=== PATIENT | female | born 1995 | race African-American/Black ===

== ENCOUNTER 2021-04-26 12:37 | Emergency (ER) | payer BC, SELFPAY ==
[2021-04-26 15:05] LABS: SARS-CoV-2 NAA Rapid Test Not Detected (NotDetected)
== END 2021-04-26 14:00 | disposition home or self-care (01) ==
LOC: CSHERS 12:37
DX: R50.9 Fever, unspecified (principal); R51.9 Headache, unspecified; R11.0 Nausea; Z20.822 Contact with and (suspected) exposure to COVID-19
CPT/HCPCS: 0240U; 99284

== ENCOUNTER 2021-06-12 12:59 | Emergency (ER) | payer SELFPAY ==
[2021-06-12] MEDS ORDERED: Ketorolac Tromethamine 30 MG/ML VIAL ONE (14:07)
== END 2021-06-12 14:30 | disposition home or self-care (01) ==
LOC: CSHERS 12:59
DX: L02.416 Cutaneous abscess of left lower limb (principal); L73.2 Hidradenitis suppurativa; F17.210 Nicotine dependence, cigarettes, uncomplicated
CPT/HCPCS: 96372; 99282; J1885

== ENCOUNTER 2021-08-09 20:16 | Emergency (ER) | payer SELFPAY ==
[2021-08-09] MEDS ORDERED: Ketorolac Tromethamine 30 MG/ML VIAL ONE (21:00)
== END 2021-08-09 21:37 | disposition home or self-care (01) ==
LOC: CSHERS 20:16
DX: M79.631 Pain in right forearm (principal); F17.210 Nicotine dependence, cigarettes, uncomplicated
CPT/HCPCS: 36416; 93005; 96372; J1885

== ENCOUNTER 2022-02-07 11:30 | Emergency (ER) | payer SELFPAY ==
[2022-02-07] MEDS ORDERED: Ondansetron ODT 4 MG TAB ONE (12:32)
[2022-02-07 13:07] LABS: Bilirubin Neg (Negative); Blood, Urine 250 (Negative); Clarity Slightly Cloudy (Clear); Glucose, Urine (Dipstick) Normal (Negative); Ketone, Urine Negative (Negative); Leukocyte 500 (Negative); Nitrite Negative (Negative); Protein, Urine (Dipstick) 30 mg/dl (Neg-Trace); Urobilinogen Normal mg/dL (Less than 2)
[2022-02-07 13:08] LABS: Pregnancy Test - Urine (BHCG) Negative (Negative); Pregu Control Background? CLEAR/WHITE (CLR/WHITE); Pregu Control Bar Appear? YES (CONTROL BAR)
[2022-02-07 13:23] LABS: Bacteria/HPF 1+ HPF (None Seen); RBC/HPF 21-50 HPF (0-3); WBC/HPF 21-50 HPF (0-3)
== END 2022-02-07 13:23 | disposition home or self-care (01) ==
LOC: CSHERS 11:30
DX: R11.2 Nausea with vomiting, unspecified (principal); F17.210 Nicotine dependence, cigarettes, uncomplicated; Z20.822 Contact with and (suspected) exposure to COVID-19
CPT/HCPCS: 81003; 81015; 81025; 99284; Q0162; U0003; U0005

== ENCOUNTER 2022-03-20 14:47 | Emergency (ER) | payer SELFPAY | END 2022-03-20 17:32 | disposition left against medical advice (07) | LOC: CSHERS 14:47 | DX: Z53.21 Procedure and treatment not carried out due to patient leaving prior to being seen by health care provider (principal) ==

== ENCOUNTER 2022-06-27 15:08 | Emergency (ER) | payer SELFPAY ==
[2022-06-27] MEDS ORDERED: Ketorolac Tromethamine 30 MG/ML VIAL ONE (15:52)
== END 2022-06-27 15:54 | disposition home or self-care (01) ==
LOC: CSHERS 15:08
DX: K03.81 Cracked tooth (principal)
CPT/HCPCS: 96372; 99282; J1885

== ENCOUNTER 2023-01-07 15:09 | Emergency (ER) | payer SELFPAY ==
[2023-01-07] MEDS ORDERED: Bicillin LA 1.2 MILLION UNITS/2 ML SYRINGE IM SCH (16:45)
[2023-01-07 16:48] LABS: SARS-CoV-2 NAA Rapid Test Not Detected (NotDetected)
== END 2023-01-07 17:24 | disposition home or self-care (01) ==
LOC: CSHERS 15:09
DX: J02.0 Streptococcal pharyngitis (principal); Z20.822 Contact with and (suspected) exposure to COVID-19; F17.210 Nicotine dependence, cigarettes, uncomplicated
CPT/HCPCS: 87430; 96372; 99283; J0561; U0002

== ENCOUNTER 2023-07-05 14:26 | Emergency (ER) | payer OTHER ==
[2023-07-05] MEDS ORDERED: Sterile Water 10 ML ONE (16:10)
[2023-07-05] MEDS ORDERED: cefTRIAXone (ROCEPHIN) 500 MG VIAL ONE (16:11)
[2023-07-05] MEDS ORDERED: Azithromycin 250 MG TAB ONE (16:11)
[2023-07-06 19:49] LABS: GC by PCR, Vaginal Swab Not Detected (NotDetected)
== END 2023-07-05 17:30 | disposition home or self-care (01) ==
LOC: CSHERS 14:26
DX: N76.0 Acute vaginitis (principal); B37.31 Acute candidiasis of vulva and vagina; F17.210 Nicotine dependence, cigarettes, uncomplicated
CPT/HCPCS: 87480; 87510; 87591; 87660; 96372; 99283; J0696

== ENCOUNTER 2023-07-16 18:11 | Inpatient (IN) | payer OTHER ==
[2023-07-16] MEDS ORDERED: Ondansetron PF 4 MG/2 ML Vial ONE (18:45)
[2023-07-16 18:50] LABS: Bilirubin Neg (Negative); Blood, Urine 50 (Negative); Clarity Clear (Clear); Glucose, Urine (Dipstick) >=1000 mg/dL (Negative); Ketone, Urine 150 mg/dL (Negative); Leukocyte Negative (Negative); Nitrite Negative (Negative); Protein, Urine (Dipstick) 30 mg/dl (Neg-Trace); Specific Gravity, Urine 1.015 (1.005-1.030); Urobilinogen Normal mg/dL (Less than 2)
[2023-07-16 18:57] LABS: #Basophils 0.1 10x3/uL (0.0-0.2); #Eosinphils 0.1 10x3/uL (0.0-0.5); #Monocytes 1.2 10x3/uL (0.0-1.1); #Neutrophils 12.2 10x3/uL (1.5-8.4); %Basophils 0.7 % (0.0-2.0); %Eosinophils 0.8 % (0.0-6.0); %Lymphocytes 17.4 % (18.0-47.0); %Neutrophils 73.4 % (40.0-75.0); Hematocrit 40.7 % (34.9-44.5); Hemoglobin 13.9 g/dL (12.0-15.5); Mean Corpuscular HGB CONC 34.2 g/dL (32.0-36.0); Mean Corpuscular Hemoglobin 23.6 pg (27.0-33.0); Mean Platelet Volume 11.6 fl (7.4-10.4); Platelet Count 342 10x3/uL (150-450); RBC Distribution Width 17.4 % (11.5-14.5); White Blood Cell (WBC) Count 16.6 10x3/uL (3.5-10.5)
[2023-07-16 19:09] LABS: ALT (SGPT) 28 U/L (8-55); AST (SGOT) 20 U/L (5-34); Albumin 4.9 g/dL (3.5-5.0); Alkaline Phosphatase 135 U/L (40-110); Anion Gap 24 mmol/L (10-20); BUN (Urea Nitrogen) 13 mg/dL (7.0-18.7); Bilirubin, Total 0.8 mg/dL (0.2-1.2); Calc. Creatinine Clearance 0 mL/min (70-130); Calcium 10.9 mg/dL (7.8-10.44); Carbon Dioxide 10 mmol/L (22-29); Chloride 93 mmol/L (98-107); Estimated GFR 49; Globulin 4.7 g/dL (2.4-3.5); Lipase 19 U/L (8-78); Potassium 4.7 mmol/L (3.5-5.1); Protein, Total 9.6 g/dL (6.0-8.3); Sodium 122 mmol/L (136-145)
[2023-07-16 19:12] LABS: Bacteria/HPF Rare-Few HPF (None Seen); CAUTI Indications for Culture Dysuria,urgency,freq; RBC/HPF 0-3 HPF (0-3); Squamous Epithelial 0-3 HPF (0-3); WBC/HPF 0-3 HPF (0-3)
[2023-07-16 19:13] LABS: Urine Culture Reflex No No
[2023-07-16 19:23] LABS: Critical Call Chemistry ERS.EG AT 19:22; Glucose 638 mg/dL (70-105)
[2023-07-16 19:37] LABS: Microcytosis MODERATE=15-30 cells (100X) (0-5/hpf)
[2023-07-16 19:38] LABS: Large Platelets SLIGHT (None Seen); Platelet Adequacy Comment Appears Adequate
[2023-07-16 19:45] LABS: BHCG - Serum Negative (NEGATIVE); Pregs Control Background? CLEAR/WHITE (CLR/WHITE); Pregs Control Bar Appear? YES (CONTROL BAR)
[2023-07-16] MEDS ORDERED: INSULIN REGULAR IN 0.9 % NACL 100 UNITS/100 ML BAG ONE (19:50)
[2023-07-16 20:00] LABS: Actual Bicarbonate (HCO3v) 5.7 mEq/L (22-28); Analyzer IN Cardio CS ER; Base Excess -20.4 mEq/L (-2 - +2); Calcium, Ionized (venous) 0.55 mmol/L (1.16-1.32); Chloride (VBG) 127 mmol/L (98-106); Critical Notified By: CP.PH; Hematocrit-VBG 15 % (36.0-47.0); Hemoglobin (Hb) 5.2 g/dL (11.7-15.5); Potassium (VBG) 1.21 mmol/L (3.70-5.30); Puncture Site Other Site; RapidComm Collect By LAB.RB2; Sodium 140 mmol/L (133-146); pH (venous) 7.209 (7.32-7.43)
[2023-07-16] MEDS ORDERED: Dextrose 50% Abboject 50 ML SYRINGE SLOW IVP PRN (22:18)
[2023-07-16] MEDS ORDERED: Dextrose 5 %-0.45 % NaCl 1,000 ML IV PRN (22:18)
[2023-07-16] MEDS ORDERED: Electrolyte Replacement Protocol 1 EACH IVPB PRN (22:18)
[2023-07-16] MEDS ORDERED: NS 0.9% w/ 20 MEQ KCL 1,000 ML IV PRN (22:18)
[2023-07-16] MEDS ORDERED: Sodium Chloride 0.9% 1,000 ML IV PRN ×4 (22:18)
[2023-07-16] MEDS ORDERED: Ondansetron PF 4 MG/2 ML Vial IVP PRN (22:24)
[2023-07-16] MEDS ORDERED: Acetaminophen 325 MG TAB PO PRN (22:24)
[2023-07-16] MEDS ORDERED: Ondansetron ODT 4 MG TAB PO PRN (22:24)
[2023-07-16] MEDS: Morphine 2 MG/ML VIAL SLOW IVP SCH (22:53)
[2023-07-16] MEDS: NS 0.9% w/ 20 MEQ KCL 1,000 ML IV PRN (22:57)
[2023-07-16 23:03] LABS: Anion Gap 22 mmol/L (10-20); BUN (Urea Nitrogen) 11 mg/dL (7.0-18.7); Calc. Creatinine Clearance 158 mL/min (70-130); Calcium 10.2 mg/dL (7.8-10.44); Carbon Dioxide 12 mmol/L (22-29); Chloride 101 mmol/L (98-107); Estimated GFR 65; Glucose 365 mg/dL (70-105); Magnesium 2.1 mg/dL (1.6-2.6); Phosphorus 3.6 mg/dL (2.3-4.7); Potassium 4.2 mmol/L (3.5-5.1); Sodium 131 mmol/L (136-145)
[2023-07-17] MEDS: D5 1/2 NS w/20 mEq KCL 1,000 ML IV PRN (03:12)
[2023-07-17] MEDS: Calcium Carbonate 500 MG ChewTAB PO SCH (03:32)
[2023-07-17 03:38] LABS: #Basophils 0.1 10x3/uL (0.0-0.2); #Eosinphils 0.2 10x3/uL (0.0-0.5); #Monocytes 1.3 10x3/uL (0.0-1.1); #Neutrophils 10.6 10x3/uL (1.5-8.4); %Basophils 0.5 % (0.0-2.0); %Eosinophils 0.9 % (0.0-6.0); %Lymphocytes 22.6 % (18.0-47.0); %Monocytes 8.4 % (0.0-10.0); %Neutrophils 67.2 % (40.0-75.0); Hematocrit 36.9 % (34.9-44.5); Hemoglobin 12.6 g/dL (12.0-15.5); Mean Corpuscular HGB CONC 34.1 g/dL (32.0-36.0); Mean Corpuscular Hemoglobin 23.5 pg (27.0-33.0); Mean Corpuscular Volume 68.8 fl (81.6-98.3); Mean Platelet Volume 11.4 fl (7.4-10.4); Platelet Count 334 10x3/uL (150-450); RBC Distribution Width 16.6 % (11.5-14.5); Red Blood Cell (RBC) Count 5.36 10x6/uL (3.90-5.03); White Blood Cell (WBC) Count 15.8 10x3/uL (3.5-10.5)
[2023-07-17 04:19] LABS: Anion Gap 17 mmol/L (10-20); Anion Gap 18 mmol/L (10-20); BUN (Urea Nitrogen) 8 mg/dL (7.0-18.7); BUN (Urea Nitrogen) 9 mg/dL (7.0-18.7); Calc. Creatinine Clearance 181 mL/min (70-130); Calc. Creatinine Clearance 201 mL/min (70-130); Calcium 9.2 mg/dL (7.8-10.44); Calcium 9.3 mg/dL (7.8-10.44); Carbon Dioxide 12 mmol/L (22-29); Carbon Dioxide 14 mmol/L (22-29); Chloride 105 mmol/L (98-107); Chloride 106 mmol/L (98-107); Estimated GFR 76; Estimated GFR 86; Glucose 218 mg/dL (70-105); Glucose 224 mg/dL (70-105); Magnesium 1.9 mg/dL (1.6-2.6); Potassium 4.4 mmol/L (3.5-5.1); Potassium 4.5 mmol/L (3.5-5.1); Sodium 131 mmol/L (136-145); Sodium 132 mmol/L (136-145)
[2023-07-17 04:21] LABS: Phosphorus 2.5 mg/dL (2.3-4.7)
[2023-07-17 04:26] LABS: Troponin I 0.038 ng/mL (< 0.028)
[2023-07-17] MEDS: Pantoprazole 40 MG VIAL IVP SCH (05:32)
[2023-07-17] MEDS: Mag-Al 1200 mg/1200 mg/30 ML UDCUP PO SCH (05:33)
[2023-07-17] MEDS: Magnesium 2 GM/50 ML(in water) 2 GM in Premix 1 BAG IVPB SCH (05:33)
[2023-07-17 07:13] LABS: BUN (Urea Nitrogen) 8 mg/dL (7.0-18.7); Calc. Creatinine Clearance 194 mL/min (70-130); Calcium 9.3 mg/dL (7.8-10.44); Carbon Dioxide 11 mmol/L (22-29); Estimated GFR 80; Glucose 276 mg/dL (70-105)
[2023-07-17 07:39] LABS: Chloride 105 mmol/L (98-107); Potassium 4.4 mmol/L (3.5-5.1); Sodium 129 mmol/L (136-145)
[2023-07-17 08:03] LABS: Anion Gap 17 mmol/L (10-20)
[2023-07-17] MEDS: Enoxaparin 40 MG (0.4 mL) SYRINGE SC SCH ×2 (08:42→20:04)
[2023-07-17] MEDS: INSULIN REGULAR IN 0.9 % NACL 100 UNITS in Premix 1 BAG IVPB SCH (08:59)
[2023-07-17] MEDS: Lisinopril 5 MG TAB PO SCH (09:50)
[2023-07-17 12:34] LABS: Anion Gap 15 mmol/L (10-20); BUN (Urea Nitrogen) 5 mg/dL (7.0-18.7); Calc. Creatinine Clearance 216 mL/min (70-130); Calcium 9.2 mg/dL (7.8-10.44); Carbon Dioxide 14 mmol/L (22-29); Chloride 107 mmol/L (98-107); Estimated GFR 91; Glucose 211 mg/dL (70-105); Potassium 3.6 mmol/L (3.5-5.1); Sodium 132 mmol/L (136-145)
[2023-07-17] MEDS ORDERED: Dextrose 5% in Water 1,000 ML IV PRN (13:20)
[2023-07-17] MEDS ORDERED: Dextrose 50% Abboject 50 ML SYRINGE SLOW IVP PRN (13:20)
[2023-07-17] MEDS ORDERED: Glucagon 1 MG/ML KIT IM PRN (13:20)
[2023-07-17] MEDS: Lantus 1000 UNITS/10 ML VIAL SC SCH ×2 (13:59→20:03)
[2023-07-17 14:13] LABS: Hemoglobin A1c 11.8 % (4.0-6.0)
[2023-07-17] MEDS: Fluconazole 100 MG TAB PO SCH (15:59)
[2023-07-17] MEDS: HumaLOG 300 UNITS/3 ML VIAL SC PRN ×2 (16:21→20:00)
[2023-07-17] MEDS: HumaLOG 300 UNITS/3 ML VIAL SC SCH (18:15)
[2023-07-17] MEDS: FLU VACC QS2023-24(6MOS UP)/PF 60 MCG/0.5 ML SYRINGE IM ONE (18:48)
[2023-07-18] MEDS: HumaLOG 300 UNITS/3 ML VIAL SC SCH ×3 (00:15→10:28)
[2023-07-18 03:15] LABS: #Basophils 0.1 10x3/uL (0.0-0.2); #Eosinphils 0.2 10x3/uL (0.0-0.5); #Monocytes 0.8 10x3/uL (0.0-1.1); #Neutrophils 5.6 10x3/uL (1.5-8.4); %Basophils 0.7 % (0.0-2.0); %Lymphocytes 32.2 % (18.0-47.0); %Neutrophils 56.6 % (40.0-75.0); Hematocrit 36.3 % (34.9-44.5); Hemoglobin 12.8 g/dL (12.0-15.5); Mean Corpuscular HGB CONC 35.3 g/dL (32.0-36.0); Mean Corpuscular Hemoglobin 24.2 pg (27.0-33.0); Mean Corpuscular Volume 68.8 fl (81.6-98.3); Mean Platelet Volume 10.8 fl (7.4-10.4); Platelet Count 262 10x3/uL (150-450); RBC Distribution Width 16.8 % (11.5-14.5); Red Blood Cell (RBC) Count 5.28 10x6/uL (3.90-5.03); White Blood Cell (WBC) Count 9.9 10x3/uL (3.5-10.5)
[2023-07-18 03:38] LABS: Anion Gap 19 mmol/L (10-20); BUN (Urea Nitrogen) 5 mg/dL (7.0-18.7); Calc. Creatinine Clearance 194 mL/min (70-130); Calcium 9.1 mg/dL (7.8-10.44); Carbon Dioxide 12 mmol/L (22-29); Chloride 104 mmol/L (98-107); Estimated GFR 80; Glucose 307 mg/dL (70-105); Iron 70 ug/dL (50-170); Iron Binding Capacity, Total 300 mcg/dL (265-497); Magnesium 1.8 mg/dL (1.6-2.6); Potassium 3.8 mmol/L (3.5-5.1); Sodium 131 mmol/L (136-145)
[2023-07-18 04:29] VITALS: BMI 45.9
[2023-07-18 05:07] LABS: Iron 71 ug/dL (50-170); Iron Binding Capacity, Total 304 mcg/dL (265-497)
[2023-07-18] MEDS: Lantus 1000 UNITS/10 ML VIAL SC SCH ×2 (10:27→21:48)
[2023-07-18] MEDS: HumaLOG 300 UNITS/3 ML VIAL SC PRN (10:30)
[2023-07-18] MEDS: Losartan 25 MG TAB PO SCH (10:32)
[2023-07-18] MEDS: Magnesium 2 GM/50 ML(in water) 2 GM in Premix 1 BAG IVPB SCH (10:33)
[2023-07-18] MEDS: Folic Acid 1 MG TAB PO SCH (10:33)
[2023-07-18 13:42] LABS: Anion Gap 15 mmol/L (10-20); BUN (Urea Nitrogen) 6 mg/dL (7.0-18.7); Calc. Creatinine Clearance 192 mL/min (70-130); Carbon Dioxide 15 mmol/L (22-29); Chloride 104 mmol/L (98-107); Estimated GFR 79; Glucose 312 mg/dL (70-105); Potassium 3.9 mmol/L (3.5-5.1); Sodium 130 mmol/L (136-145)
[2023-07-18] MEDS ORDERED: Lantus 1000 UNITS/10 ML VIAL SC SCH ×3 (21:00)
[2023-07-19 06:31] LABS: Anion Gap 17 mmol/L (10-20); BUN (Urea Nitrogen) 7 mg/dL (7.0-18.7); Calc. Creatinine Clearance 196 mL/min (70-130); Calcium 8.8 mg/dL (7.8-10.44); Carbon Dioxide 17 mmol/L (22-29); Chloride 102 mmol/L (98-107); Estimated GFR 81; Glucose 372 mg/dL (70-105); Magnesium 1.9 mg/dL (1.6-2.6); Potassium 4.3 mmol/L (3.5-5.1); Sodium 132 mmol/L (136-145)
[2023-07-19 06:33] LABS: #Basophils 0.1 10x3/uL (0.0-0.2); #Eosinphils 0.2 10x3/uL (0.0-0.5); #Monocytes 0.9 10x3/uL (0.0-1.1); %Basophils 0.6 % (0.0-2.0); %Eosinophils 2.6 % (0.0-6.0); %Lymphocytes 27.6 % (18.0-47.0); %Monocytes 10.8 % (0.0-10.0); %Neutrophils 57.8 % (40.0-75.0); Hemoglobin 12.1 g/dL (12.0-15.5); Mean Corpuscular HGB CONC 34.6 g/dL (32.0-36.0); Mean Corpuscular Hemoglobin 24.1 pg (27.0-33.0); Mean Corpuscular Volume 69.6 fl (81.6-98.3); Mean Platelet Volume 11.7 fl (7.4-10.4); Platelet Count 251 10x3/uL (150-450); RBC Distribution Width 17.2 % (11.5-14.5); Red Blood Cell (RBC) Count 5.03 10x6/uL (3.90-5.03); White Blood Cell (WBC) Count 8.7 10x3/uL (3.5-10.5)
[2023-07-19] MEDS: Magnesium 2 GM/50 ML(in water) 2 GM in Premix 1 BAG IVPB SCH (08:31)
[2023-07-19] MEDS: Losartan 25 MG TAB PO SCH (08:31)
[2023-07-19] MEDS: HumaLOG 300 UNITS/3 ML VIAL SC SCH (11:32)
[2023-07-19] MEDS: Simethicone Chewable 80 MG TAB PO PRN (17:39)
[2023-07-19] MEDS: Lantus 1000 UNITS/10 ML VIAL SC SCH (22:15)
[2023-07-20] MEDS: HumaLOG 300 UNITS/3 ML VIAL SC SCH ×3 (05:10→16:41)
[2023-07-20 06:02] LABS: Anion Gap 17 mmol/L (10-20); BUN (Urea Nitrogen) 9 mg/dL (7.0-18.7); Calc. Creatinine Clearance 190 mL/min (70-130); Calcium 8.8 mg/dL (7.8-10.44); Carbon Dioxide 18 mmol/L (22-29); Chloride 102 mmol/L (98-107); Estimated GFR 78; Sodium 133 mmol/L (136-145)
[2023-07-20 06:06] LABS: Critical Call Chemistry NUR.CB19 @0606; Glucose 412 mg/dL (70-105)
[2023-07-20 06:34] LABS: #Basophils 0.1 10x3/uL (0.0-0.2); #Eosinphils 0.2 10x3/uL (0.0-0.5); #Neutrophils 6.3 10x3/uL (1.5-8.4); %Basophils 0.6 % (0.0-2.0); %Eosinophils 2.3 % (0.0-6.0); %Lymphocytes 24.7 % (18.0-47.0); %Monocytes 9.7 % (0.0-10.0); %Neutrophils 62.3 % (40.0-75.0); Hematocrit 35.2 % (34.9-44.5); Hemoglobin 11.8 g/dL (12.0-15.5); Mean Corpuscular HGB CONC 33.5 g/dL (32.0-36.0); Mean Corpuscular Hemoglobin 23.6 pg (27.0-33.0); Mean Corpuscular Volume 70.4 fl (81.6-98.3); Mean Platelet Volume 12.4 fl (7.4-10.4); Platelet Count 275 10x3/uL (150-450); RBC Distribution Width 18.1 % (11.5-14.5); White Blood Cell (WBC) Count 10.1 10x3/uL (3.5-10.5)
[2023-07-20] MEDS: Magnesium 2 GM/50 ML(in water) 2 GM in Premix 1 BAG IVPB SCH (09:11)
[2023-07-20] MEDS: Empagliflozin 10 MG TAB PO SCH (09:34)
[2023-07-20] MEDS: Lantus 1000 UNITS/10 ML VIAL SC SCH (11:47)
[2023-07-20] MEDS ORDERED: Phenol 177 ML BOT PO PRN (19:24)
[2023-07-20] MEDS ORDERED: Benzocaine/Menthol 1 LOZ LOZ PO PRN (19:24)
[2023-07-21 04:56] LABS: Anion Gap 19 mmol/L (10-20); BUN (Urea Nitrogen) 7 mg/dL (7.0-18.7); Calc. Creatinine Clearance 221 mL/min (70-130); Calcium 8.8 mg/dL (7.8-10.44); Carbon Dioxide 16 mmol/L (22-29); Chloride 104 mmol/L (98-107); Estimated GFR 94; Glucose 204 mg/dL (70-105); Potassium 3.6 mmol/L (3.5-5.1); Sodium 135 mmol/L (136-145)
[2023-07-21 05:00] LABS: #Basophils 0.1 10x3/uL (0.0-0.2); #Eosinphils 0.3 10x3/uL (0.0-0.5); #Monocytes 0.8 10x3/uL (0.0-1.1); #Neutrophils 5.4 10x3/uL (1.5-8.4); %Basophils 0.7 % (0.0-2.0); %Eosinophils 3.1 % (0.0-6.0); %Lymphocytes 27.4 % (18.0-47.0); %Monocytes 9.1 % (0.0-10.0); %Neutrophils 59.2 % (40.0-75.0); Hematocrit 36.1 % (34.9-44.5); Mean Corpuscular HGB CONC 33.2 g/dL (32.0-36.0); Mean Corpuscular Hemoglobin 23.4 pg (27.0-33.0); Mean Corpuscular Volume 70.5 fl (81.6-98.3); Mean Platelet Volume 11.7 fl (7.4-10.4); Platelet Count 281 10x3/uL (150-450); RBC Distribution Width 18.6 % (11.5-14.5); Red Blood Cell (RBC) Count 5.12 10x6/uL (3.90-5.03); White Blood Cell (WBC) Count 9.2 10x3/uL (3.5-10.5)
[2023-07-21] MEDS: Magnesium 2 GM/50 ML(in water) 2 GM in Premix 1 BAG IVPB SCH (08:00)
[2023-07-21 09:42] VITALS: BP 136/114; TEMP 98.1
== END 2023-07-21 10:35 | disposition home or self-care (01) | DRG 638 ==
LOC: CSHERS 18:11 → CSHICU 20:06 → CSHTELE 07-18 06:23
PROVIDERS: ADMIT Family Medicine; ATTEND Family Medicine
DX: E11.10 Type 2 diabetes mellitus with ketoacidosis without coma (principal); Z68.42 Body mass index [BMI] 45.0-49.9, adult; F17.210 Nicotine dependence, cigarettes, uncomplicated; E66.01 Morbid (severe) obesity due to excess calories; D72.829 Elevated white blood cell count, unspecified; R77.8 Other specified abnormalities of plasma proteins; E11.65 Type 2 diabetes mellitus with hyperglycemia; Z82.49 Family history of ischemic heart disease and other diseases of the circulatory system; Z91.148 Patient's other noncompliance with medication regimen for other reason; Z83.3 Family history of diabetes mellitus
CPT/HCPCS: 36415; 36416; 71045; 80048; 80053; 81001; 82010; 82728; 82805; 83036; 83540; 83550; 83690; 83735; 84100; 84443; 84484; 84703; 85025; 86341; 93005; 93010; 96361; 96374; 96375; C9113; J1650; J1815; J2272; J2405; J3475; J3480

== ENCOUNTER 2023-12-31 15:48 | Emergency (ER) | payer BC, OTHER ==
[~2023-12-31 15:48] MED LIST: Iopamidol 300 61% 100 ML VIAL FS ONE
[2023-12-31 16:32] LABS: #Basophils 0.07 10x3/uL (0.0-0.2); #Eosinphils 0.39 10x3/uL (0.0-0.5); #Monocytes 0.79 10x3/uL (0.0-1.1); #Neutrophils 8.19 10x3/uL (1.5-8.4); %Basophils 0.5 % (0.0-2.0); %Eosinophils 2.9 % (0.0-6.0); %Lymphocytes 28.6 % (18.0-47.0); %Monocytes 5.9 % (0.0-10.0); %Neutrophils 61.7 % (40.0-75.0); Hematocrit 34.9 % (34.9-44.5); Hemoglobin 11.8 g/dL (12.0-15.5); Mean Corpuscular HGB CONC 33.8 g/dL (32.0-36.0); Mean Corpuscular Hemoglobin 24.4 pg (27.0-33.0); Mean Corpuscular Volume 72.3 fL (81.6-98.3); Mean Platelet Volume 10.5 fL (7.4-10.4); Platelet Count 271 10x3/uL (150-450); RBC Distribution Width 16.9 % (11.5-14.5); Red Blood Cell (RBC) Count 4.83 10x6/uL (3.90-5.03); White Blood Cell (WBC) Count 13.3 10x3/uL (3.5-10.5)
[2023-12-31 16:47] LABS: ALT (SGPT) 17 U/L (8-55); AST (SGOT) 23 U/L (5-34); Albumin 3.7 g/dL (3.5-5.0); Alkaline Phosphatase 89 U/L (40-110); Anion Gap 13 mmol/L (10-20); BUN (Urea Nitrogen) 9 mg/dL (7.0-18.7); Bilirubin, Total 0.2 mg/dL (0.2-1.2); Calc. Creatinine Clearance 0 mL/min (70-130); Calcium 9.4 mg/dL (7.8-10.44); Carbon Dioxide 23 mmol/L (22-29); Chloride 107 mmol/L (98-107); Estimated GFR 81; Globulin 3.4 g/dL (2.4-3.5); Glucose 92 mg/dL (70-105); Lipase 19 U/L (8-78); Potassium 4.3 mmol/L (3.5-5.1); Protein, Total 7.1 g/dL (6.0-8.3); Sodium 139 mmol/L (136-145)
[2023-12-31] MEDS ORDERED: Ketorolac Tromethamine 30 MG (1 mL) VIAL ONE (16:50)
[2023-12-31 16:51] LABS: Troponin I Less than 0.010 ng/mL (< 0.028)
[2023-12-31 18:27] LABS: Microcytosis SLIGHT = 6-15 cells (100X) (0-5/hpf); Platelet Adequacy Comment Appears Adequate
== END 2023-12-31 19:01 | disposition home or self-care (01) ==
LOC: CSHERS 15:48
DX: R07.9 Chest pain, unspecified (principal); I10 Essential (primary) hypertension; F17.200 Nicotine dependence, unspecified, uncomplicated; E11.9 Type 2 diabetes mellitus without complications; F17.210 Nicotine dependence, cigarettes, uncomplicated
CPT/HCPCS: 71275; 80053; 83690; 84484; 85025; 85379; 93005; 96374; J1885; Q9967

== ENCOUNTER 2025-02-09 15:27 | Emergency (ER) | payer BC ==
[2025-02-09] MEDS ORDERED: Dexamethasone 10 MG/ML VIAL ONE (17:24)
[2025-02-09] MEDS ORDERED: Ketorolac Tromethamine 30 MG (1 mL) VIAL ONE (17:24)
[2025-02-09 18:44] LABS: #Basophils 0.05 10x3/uL (0.0-0.2); #Eosinophils 0.31 10x3/uL (0.0-0.5); #Monocytes 0.69 10x3/uL (0.0-1.1); #Neutrophils 8.06 10x3/uL (1.5-8.4); %Basophils 0.4 % (0.0-2.0); %Eosinophils 2.4 % (0.0-6.0); %Lymphocytes 28.7 % (18.0-47.0); %Monocytes 5.4 % (0.0-10.0); %Neutrophils 62.7 % (40.0-75.0); BHCG - Serum Negative (NEGATIVE); Hematocrit 36.6 % (34.9-44.5); Hemoglobin 12.2 g/dL (12.0-15.5); Mean Corpuscular Hemoglobin 24.4 pg (27.0-33.0); Mean Corpuscular Volume 73.3 fL (81.6-98.3); Platelet Count 201 10x3/uL (150-450); Pregs Control Background? CLEAR/WHITE (CLR/WHITE); Pregs Control Bar Appear? YES (CONTROL BAR); Red Blood Cell (RBC) Count 4.99 10x6/uL (3.90-5.03); White Blood Cell (WBC) Count 12.85 10x3/uL (3.5-10.5)
[2025-02-09 18:50] LABS: ALT (SGPT) 22 U/L (Less than 34); AST (SGOT) 33 U/L (11-34); Albumin 4.2 g/dL (3.1-4.5); Alkaline Phosphatase 99 U/L (40-110); Anion Gap 13 mmol/L (10-20); BUN (Urea Nitrogen) 9 mg/dL (7.0-18.7); Bilirubin, Total 0.3 mg/dL (0.3-1.2); Calc. Creatinine Clearance 0 mL/min (70-130); Calcium 9.5 mg/dL (7.8-10.44); Carbon Dioxide 23 mmol/L (22-29); Chloride 106 mmol/L (98-107); Globulin 4.0 g/dL (2.4-3.5); Glucose 105 mg/dL (70-105); Potassium 3.7 mmol/L (3.5-5.1); Sodium 138 mmol/L (136-145)
[2025-02-09] MEDS ORDERED: Amoxicillin/Potassium Clav 875 MG TAB ONE (20:09)
== END 2025-02-09 20:49 | disposition home or self-care (01) ==
LOC: CSHERS 15:27
DX: J36 Peritonsillar abscess (principal); I10 Essential (primary) hypertension; E11.9 Type 2 diabetes mellitus without complications; F17.210 Nicotine dependence, cigarettes, uncomplicated
CPT/HCPCS: 70491; 80053; 84703; 85025; 87081; 87430; 96374; 96375; J0295; J1100; J1885; Q9967